=== PATIENT | male | born 1980 | race Caucasian/White ===

== ENCOUNTER 2017-06-06 14:42 | Emergency (ER) | payer OTHER ==
[2017-06-06 14:48] VITALS: BP 125/77; PULSE 77; TEMP 98; BMI 25.0
[2017-06-06] MEDS ORDERED: DIPHTH,PERTUSS(ACELL),TET 0.5 ML DISP.SYRIN IM ONE (14:49)
--- NOTE | 2017-06-06 14:50 | PDOC ---
Rapid Medical Evaluation Chief Complaint: Injury Time Seen by Provider: 06/06/17 14:44 Medical Evaluation: Allergies Allergy/AdvReac Type Severity Reaction Status Date / Time No Known Allergies Allergy Verified 06/06/17 14:45 06/06/17 14:47 Pt here with c/o : rt facial injury secondary to rock. unknown TDap and not wearing protective eyewear. Brief exam performed: 4cm laceration to rt cheek , mild sub conjunctival hemmorage. no entrapment. TENDER TO RT ORBITAL FLOOR Pt ordered for : tdap , facial ct w/ contrast pt to proceed to the ED
[2017-06-06] MEDS ORDERED: FLUORESCEIN NA 1 EA STRIP OD ONE (16:23)
--- NOTE | 2017-06-06 16:37 | PDOC ---
History of Present Illness - History of Present Illness Initial Comments: 06/06/17 17:11 Patient is a 36 year old male with no significant past medical history who presents to the ED s/p high velocity injury to Right side of face that occurred today at 1:30pm. 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 He reports force of rock was strong enough to cause his head to go backwards forcing him to hit headrest of seat. Patient reports Right facial pain to be an intense pain. He reports experiencing Occipital and parietal headache secondary to right sided facial injury. Denies loss of consciousness. Denies chest pain , SOB. Denies nausea, vomiting. Denies fever, chills. Denies any other symptoms. Allergies: None Social history: No smoking. No alcohol. No drugs. Surgical history: None PMD: None <Kane Cabrera - Last Filed: 06/06/17 17:52> - General History Source: Patient Exam Limitations: No Limitations <Katie Uribe - Last Filed: 06/06/17 20:02> - General Chief Complaint: Injury Stated Complaint: RIGHT EYE INJURY Time Seen by Provider: 06/06/17 14:44 Past History <Kane Cabrera - Last Filed: 06/06/17 17:52> - Past Medical History COPD: No - Suicide/Smoking/Psychosocial Hx Smoking History: Never smoked Have you smoked in the past 12 months: No Information on smoking cessation initiated: No Hx Alcohol Use: No Drug/Substance Use Hx: No Substance Use Type: None <Katie Uribe - Last Filed: 06/06/17 20:02> - Past Medical History Allergies/Adverse Reactions: Allergies Allergy/AdvReac Type Severity Reaction Status Date / Time No Known Allergies Allergy Verified 06/06/17 14:45 Home Medications: Ambulatory Orders Amox-Tr/K Cl [Augmentin - 875Mg Tablet] 1 tab PO BID #14 tablet 06/06/17 Oxycodone HCl/Acetaminophen [Percocet 5-325 mg Tablet] 1 tab PO Q4H #20 tablet MDD 6 06/06/17 Oxymetazoline HCl [Afrin] 1 spray NS Q6H #1 spray 06/06/17 Review of Systems - Review of Systems Able to Perform ROS?: Yes Comments:: 06/06/17 17:12 GENERAL/CONSTITUTIONAL: No fever or chills. No weakness. HEAD, EYES, EARS, NOSE AND THROAT: +Right facial pain. No change in vision. No ear pain or discharge. No sore throat. GASTROINTESTINAL: No nausea, vomiting, diarrhea or constipation. GENITOURINARY: No dysuria, frequency, or change in urination. CARDIOVASCULAR: No chest pain or shortness of breath. RESPIRATORY: No cough, wheezing, or hemoptysis. MUSCULOSKELETAL: +Back pain. No joint or muscle swelling or pain. No neck SKIN: No rash NEUROLOGIC: +Headache No vertigo, loss of consciousness, or change in strength/sensation. ENDOCRINE: No increased thirst. No abnormal weight change. HEMATOLOGIC/LYMPHATIC: No anemia, easy bleeding, or history of blood clots. ALLERGIC/IMMUNOLOGIC: No hives or skin allergy. 06/06/17 17:32 All Other Systems: Reviewed and Negative <Kane Cabrera - Last Filed: 06/06/17 17:52> *Physical Exam - Vital Signs Last Vital Signs Temp Pulse Resp BP Pulse Ox 98.0 F 77 18 125/77 100 06/06/17 14:46 06/06/17 14:46 06/06/17 14:46 06/06/17 14:46 06/06/17 14:46 - Physical Exam Comments: 06/06/17 17:12 GENERAL: Awake, alert, and fully oriented, in no acute distress HEAD: +4 cm Stellate laceration lateral to nose +Right sided facial edema. EYES: +Subconjunctival hemorrhage to right lateral eye. PERRLA, EOMI, sclera anicteric, +Mild erythema to mid right eye. +Fluorescein stain with no uptake. +Tenderness over front facial bone with laceration measuring 4 cm. No corneal abrasion. No Diplopia. No Ptosis. No eyelid laceration. No palpable step off. ENT: Auricles normal inspection, hearing grossly normal, nares patent, oropharynx clear without exudates. Moist mucosa NECK: Normal ROM, supple, no lymphadenopathy, JVD, or masses LUNGS: Breath sounds equal, clear to auscultation bilaterally. No wheezes, and no crackles HEART: Regular rate and rhythm, normal S1 and S2, no murmurs, rubs or gallops ABDOMEN: Soft, nontender, normoactive bowel sounds. No guarding, no rebound. No masses MUSCULOSKELETAL: +Point tenderness to lower cervical spine. EXTREMITIES: Normal range of motion, no edema. No clubbing or cyanosis. No cords, erythema, or tenderness NEUROLOGICAL: Cranial nerves II through XII grossly intact. Normal speech, normal gait SKIN: Warm, Dry, normal turgor, no rashes or lesions noted. <Kane Cabrera - Last Filed: 06/06/17 17:52> - Vital Signs Last Vital Signs Temp Pulse Resp BP Pulse Ox 98.0 F 77 18 125/77 100 06/06/17 14:46 06/06/17 14:46 06/06/17 14:46 06/06/17 14:46 06/06/17 14:46 <Katie Uribe - Last Filed: 06/06/17 20:02> Procedures - Laceration/Wound Repair Right Face Wound Length: 2.6 to 5.0 cm Wound Explored: clean Wound's Depth, Shape: stellate Irrigated w/ Saline: Yes Betadine Prep: Yes Anesthesia: 1% Lidocaine Amount of Anesthetic (ccs): 3 Wound Repaired With: Sutures Suture Size/Type: 6:0 Number of Sutures: 7 Layer Closure: No Progress: 06/06/17 19:44 Bacitracin and dressing applied, patient tolerated procedure well. <Katie Uribe - Last Filed: 06/06/17 20:02> ED Treatment Course - Medications Given in the ED: ED Medications Discontinued Medications Generic Name Dose Route Start Last Admin Trade Name Freq PRN Reason Stop Dose Admin Diphtheria/Tetanus/Acell Pertussis 0.5 ml 06/06/17 14:49 06/06/17 16:21 Boostrix - IM 06/06/17 14:50 0.5 ml .ONCE ONE Administration <Kane Cabrera - Last Filed: 06/06/17 17:52> - RADIOLOGY Radiology Studies Ordered: Category Date Time Status HEAD CT WITHOUT CONTRAST [CT] Stat CT Scan 06/06/17 16:23 Ordered - Medications Given in the ED: ED Medications Discontinued Medications Generic Name Dose Route Start Last Admin Trade Name Freq PRN Reason Stop Dose Admin Diphtheria/Tetanus/Acell Pertussis 0.5 ml 06/06/17 14:49 06/06/17 16:21 Boostrix - IM 06/06/17 14:50 0.5 ml .ONCE ONE Administration <Katie Uribe - Last Filed: 06/06/17 20:02> Medical Decision Making - Medical Decision Making 06/06/17 18:23 A/P: Patient here with high velocity injury to right side of face CT scan of the facial bones demonstrated a nondisplaced acute fracture to the floor of the right orbit no evidence of extraocular muscle entrapment, moderate hemorrhagic fluid level partially opacifying the right maxillary sinus and obscuring the right ostiomeatal complex. There is a prominent symmetric calcification in bilateral lentiform nuclei a nonspecific calcification in the right frontal periventricular white matter. These are nonspecific and may be idiopathic but more than expected for age. Please correlate clinically for underlying metabolic abnormality including hyperparathyroidism hypercalcemia or prior toxic ischemic infectious insult. Patient further questioned and none of the above history has been noted. Based upon mechanism of injury and high velocity injury patient sent for CT scan of head and neck. Boostrix given. Percocet one tablet ordered. 06/06/17 19:40 CT scan of C-spine with no evidence of acute fracture or subluxation, no evidence of acute intracranial hemorrhage or acute skull fracture no mass effect midline shift or hydrocephalic. I will consult [facility] for instructions on follow-up Spoke to Dr. Mena, oromaxillary facial surgeon from [facility], patient to be discharged home on Augmentin and Afrin will give 2 g Ancef while in emergency Department and follow-up with dental clinic on Patient tolerated antibiotics well, prescriptions given to patient. See procedure note for facial repair. <Katie Uribe - Last Filed: 06/06/17 20:02> *DC/Admit/Observation/Transfer - Attestations Scribe Attestion: 06/06/17 17:13 Documentation prepared by Kane Cabrera, acting as director medical for Emergency Dept,Physician, /. <Kane Cabrera - Last Filed: 06/06/17 17:52> - Discharge Dispostion Admit: No <Katie Uribe - Last Filed: 06/06/17 20:02> Diagnosis at time of Disposition: Facial trauma Qualifiers: Encounter type: initial encounter Qualified Code(s): S09.93XA - Unspecified injury of face, initial encounter Orbital floor fracture Qualifiers: Encounter type: initial encounter Fracture type: closed Laterality: right Qualified Code(s): S02.31XA - Fracture of orbital floor, right side, initial encounter for closed fracture - Discharge Dispostion Disposition: HOME Condition at time of disposition: Stable - Prescriptions Prescriptions: Amox-Tr/K Cl [Augmentin - 875Mg Tablet] 1 tab PO BID #14 tablet Oxycodone HCl/Acetaminophen [Percocet 5-325 mg Tablet] 1 tab PO Q4H #20 tablet MDD 6 Oxymetazoline HCl [Afrin] 1 spray NS Q6H #1 spray - Patient Instructions Printed Discharge Instructions: DI for Orbital Fracture Additional Instructions: PLease follow up at the dental clinic at [facility] early on . [address], in [place], [place]. Dr. Brandon aware May call [phone] for directions.
[2017-06-06] MEDS ORDERED: ceFAZolin 2 GRAM PREMIX BAG IVPB ONE (19:25)
[2017-06-06] MEDS ORDERED: DEXTROSE 5% IVPB ONE (19:45)
[2017-06-06] MEDS ORDERED: CEFAZOLIN IVPB ONE (19:45)
[2017-06-06] MEDS ORDERED: CEFAZOLIN 2 GM in DEXTROSE 5%-WATER - 100 ML IVPB ONE (19:45)
[2017-06-06] MEDS ORDERED: WATER IVPB ONE (19:45)
[2017-06-06] MEDS ORDERED: CEFAZOLIN 1 GM/D5W 2 GM/100 ML BAG ONE (19:47)
== END 2017-06-06 20:24 | disposition home or self-care (01) ==
LOC: JERFT 14:42
PROC: 3E0234Z Introduction of Serum, Toxoid and Vaccine into Muscle, Percutaneous Approach (ICD-10-PCS; principal; 2017-06-06)
PROC: 0JQ10ZZ Repair Face Subcutaneous Tissue and Fascia, Open Approach (ICD-10-PCS; 2017-06-06)
PROC: 3E03329 Introduction of Other Anti-infective into Peripheral Vein, Percutaneous Approach (ICD-10-PCS; 2017-06-06)
DX: S02.31XA Fracture of orbital floor, right side, initial encounter for closed fracture (principal); S01.411A Laceration without foreign body of right cheek and temporomandibular area, initial encounter; H11.31 Conjunctival hemorrhage, right eye; W20.8XXA Other cause of strike by thrown, projected or falling object, initial encounter; Y93.H3 Activity, building and construction; Y92.61 Building [any] under construction as the place of occurrence of the external cause; Y99.0 Civilian activity done for income or pay
CPT/HCPCS: 70450-TC; 70486-TC; 72125-TC; 90715; 99281-25

== ENCOUNTER 2017-06-12 10:06 | Emergency (ER) | payer OTHER ==
[2017-06-12 10:40] VITALS: BP 107/57; PULSE 71; TEMP 98.2; BMI 25.0
--- NOTE | 2017-06-12 11:04 | PDOC ---
Suture Removal/Wound Check HPI - History of Present Illness Chief Complaint: Suture/Staple Removal(Here) Stated Complaint: STAPLE/SUTURE REMOVAL (HERE) Time Seen by Provider: 06/12/17 11:01 History Source: Yes: Patient Exam Limitations: Yes: No Limitations Treated at: [facility] Date of Last ED visit: 06/06/17 - Previous ED Treatment Type of procedure performed on last visit: Yes: Laceration Repair Tetanus Immunization: Yes: Up to Date Past History - Travel Traveled outside of the country in the last 30 days: No Close contact w/someone who was outside of country & ill: No - Past Medical History Allergies/Adverse Reactions: Allergies Allergy/AdvReac Type Severity Reaction Status Date / Time No Known Allergies Allergy Verified 06/12/17 10:38 Home Medications: Ambulatory Orders Amox-Tr/K Cl [Augmentin - 875Mg Tablet] 1 tab PO BID #14 tablet 06/06/17 Oxymetazoline HCl [Afrin] 1 spray NS Q6H #1 spray 06/06/17 COPD: No Other medical history: DENIES. - Suicide/Smoking/Psychosocial Hx Smoking History: Never smoked Have you smoked in the past 12 months: No Hx Alcohol Use: No Drug/Substance Use Hx: No Substance Use Type: None Suture Removal/Wound Check PE - Physical Exam Laceration/Wound Check Symptoms: reports: Improved. denies: Bleeding Location of Laceration/Wound: right: Face (6 simple interrupted stitches removed ) *Review of Systems - Review of Systems Able to Perform ROS?: Yes Constitutional: No: Chills, Fever HEENTM: No: Eye Pain, Blurred Vision, Recent change in vision, Nose Pain Integumentary: No: Bruising, Dryness, Erythema, Pruritus Medical Decision Making - Medical Decision Making 06/12/17 12:03 Patient is a 36-year-old male who presents for suture removal for laceration repair. Patient was seen on 06/06/17. Per old records, patient was diagnosed with an orbital floor fracture. Patient states that he has followed up with [facility]. Eye exam, extra ocular motion intact, PERRLA. 6 stitches were removed. No signs of infection, or drainage. Wound appears to be healing well. Steri-Strips placed over the wound. We'll discharge home at this time with instructions to use Mederma and to follow-up with [facility] in regards to his orbital floor fracture. *DC/Admit/Observation/Transfer Diagnosis at time of Disposition: Encounter for removal of sutures - Discharge Dispostion Disposition: HOME Condition at time of disposition: Good Admit: No - Referrals - Patient Instructions Printed Discharge Instructions: DI for Suture Removal Additional Instructions: You had your stitches removed today. The wound is healing well. There are no signs of infection. Small strips were placed over the wound to help with the healing process. These will fall off on their own. Once a fall and off you may gently wash the area with soap and water and pat dry. You may purchase Mederma, to help with scarring. This is an [id number] medication. Please follow-up again with [facility] in regards to your orbital floor fracture. Return to the emergency department if you have worsening pain in your face, difficulty moving your eye, have any signs of infection to your face including drainage, redness or fevers, or have any changes in your symptoms. Hoy te quitaron los puntos de sutura. La herida se est curando deepa. No hay signos de infeccin. Se colocaron pequeas tiras sobre la herida para ayudar con el proceso de curacin. Estos se caern solos. Marcy vez que se y se baja , puede prince suavemente el ibeth con agua y jabn y secar. Puede comprar Mederma para ayudar con las cicatrices. Maria Alejandra es un medicamento sin receta. Por favor, niurka un seguimiento nuevamente con [facility] con respecto a mancini fractura en el piso orbital. Regrese al departamento de emergencias si tiene un empeoramiento en mancini kendra, dificultad para research and development researcher el ronal, signos de infeccin en la kendra, incluyendo drenaje , enrojecimiento o fiebre, o si presenta algn cambio en kacey sntomas. Print Language: KENYAN - Post Discharge Activity Forms/Work/School Notes: Back to Work
== END 2017-06-12 12:04 | disposition home or self-care (01) ==
LOC: JERFT 10:06
DX: Z48.02 Encounter for removal of sutures (principal)
CPT/HCPCS: 99281-25